=== PATIENT | male | born 1990 | race Caucasian/White ===

== ENCOUNTER 2018-04-05 23:20 | Emergency (ER) | payer BC, MEDICAID ==
--- NOTE | 2018-04-05 23:58 | ED ---
Substance Abuse/Use - HPI Summary HPI Summary: This is judith Whatley documenting for attending Dr. Pari Hays This patient is a 27 year old M presenting to [facility] with a chief complaint of heroin overdose since 2199. Pt and friend were driving in a car and he became unresponsive. Pt was given 4 mg Narcan with good effect. Pt notes he does not know who called EMS. Pt does not know where he was when he was picked up. Pt was unconscious upon arrival. He denies IV heroin use, admits he nasally ingested the substance. Pt states he never does (heroin) and that its his first time. Pt lives in [place], pt denies Rx, PMHx. I, Dr. Yañez personally performed the services described in this documentation as scribed in my presence and it is both accurate and complete - History Of Current Complaint Chief Complaint: EDSubstanceAbuse Stated Complaint: OVERDOSE Time Seen by Provider: 04/05/18 23:28 Hx Obtained From: Patient, EMS Onset/Duration of Drug/ETOH Abuse: Hours Ingestion History: Type/Name Of Drug - heroin, nasal Overdose Characteristics: Other - insufflation Timing Of Abuse: Intermittent Severity Initially: Severe Severity Currently: Mild Character: Lethargic Aggravating Factor(s): Nothing Alleviating Factor(s): Nothing Associated Signs And Symptoms: Confused, Intentional Ingestion Related Hx: Drug/Alcohol Last Used @ - 2199 - Allergies/Home Medications Allergies/Adverse Reactions: Allergies Allergy/AdvReac Type Severity Reaction Status Date / Time No Known Allergies Allergy Verified 04/05/18 23:29 Home Medications: Home Medications NK [No Home Medications Reported] 04/05/18 [History Confirmed 04/05/18] PMH/Surg Hx/FS Hx/Imm Hx Endocrine/Hematology History: Denies: Hx Diabetes, Hx Sickle Cell Disease Cardiovascular History: Denies: Hx Myocardial Infarction Respiratory History: Denies: Hx Lung Cancer History: Denies: Hx Chronic Renal Failure, Hx Dialysis Musculoskeletal History: Denies: Hx Osteoporosis Sensory History: Denies: Hx Legally Blind, Hx Deafness Opthamlomology History: Denies: Hx Legally Blind EENT History: Denies: Hx Deafness Neurological History: Denies: Hx CVA Psychiatric History: Reports: Hx Substance Abuse - heroin Denies: Hx Autism, Hx Schizophrenia Infectious Disease History: Yes Infectious Disease History: Denies: Traveled Outside the [place] in Last 30 Days - Family History Known Family History: Negative: Blood Disorder - Social History Alcohol Use: Weekly Hx Substance Use: Yes Substance Use Type: Reports: Heroin Hx Tobacco Use: Yes Smoking Status (MU): Current Every Day Smoker Review of Systems Positive: Other - lethargy Positive: Syncope All Other Systems Reviewed And Are Negative: Yes Physical Exam - Summary Physical Exam Summary: VITAL SIGNS: Reviewed. GENERAL: Patient is a well-developed and nourished male who is lying comfortable in the stretcher. Patient is not in any acute respiratory distress. HEAD AND FACE: No signs of trauma. No ecchymosis, hematomas or skull depressions. No sinus tenderness. EYES: PERRLA, EOMI x 2, No injected conjunctiva, no nystagmus. EARS: Hearing grossly intact. Ear canals and tympanic membranes are within normal limits. MOUTH: Oropharynx within normal limits. NECK: Supple, trachea is midline, no adenopathy, no JVD, no carotid bruit, no c- spine tenderness, neck with full ROM. CHEST: Symmetric, no tenderness at palpation LUNGS: Clear to auscultation bilaterally. No wheezing or crackles. CVS: Regular rate and rhythm, S1 and S2 present, no murmurs or gallops appreciated. ABDOMEN: Soft, non-tender. No signs of distention. No rebound no guarding, and no masses palpated. Bowel sounds are normal. EXTREMITIES: FROM in all major joints, no edema, no cyanosis or clubbing. NEURO: Alert and oriented x 3. No acute neurological deficits. Speech is normal and follows commands. SKIN: Dry and warm Triage Information Reviewed: Yes Vital Signs On Initial Exam: Initial Vitals Pulse BP Pulse Ox 117 129/72 96 04/05/18 23:22 04/05/18 23:22 04/05/18 23:22 Vital Signs Reviewed: Yes Diagnostics - Vital Signs Vital Signs Temp Pulse Resp BP Pulse Ox 04/05/18 23:28 118 97 04/05/18 23:26 98.6 F 111 22 136/78 94 04/05/18 23:22 117 129/72 96 - Laboratory Lab Statement: Any lab studies that have been ordered have been reviewed, and results considered in the medical decision making process. Course/Dx - Course Course Of Treatment: 27 year old male with no PMHx sniffed heroin with friend, pt became unresponsive. It appears his friend called 911. Pt given 4 mg narcan with good effect. Pt admitted to sniffing heroin, but 1st time using it. Pt has been in ED under observation for an hour and is hemodymaically stable, will be discharged. - Diagnoses Provider Diagnoses: Heroin abuse Discharge - Sign-Out/Discharge Documenting (check all that apply): Patient Departure - Discharge Plan Condition: Stable Disposition: HOME Patient Education Materials: Narcotic Abuse (ED) Referrals: Abdirizak Webb MD [Primary Care Provider] - 2 Days Additional Instructions: Return to the emergency department for any changing or worsening symptoms. Follow up with your primary care provider in 1-2 days. - Billing Disposition and Condition Condition: STABLE Disposition: Home Attestation Statement User Type: Provider - IDr. Yañez personally performed the services described in this documentation as scribed in my presence and it is both accurate and complete.
[2018-04-06 01:10] VITALS: BP 124/72
== END 2018-04-06 01:11 | disposition home or self-care (01) ==
LOC: ED 23:20
DX: T40.1X1A Poisoning by heroin, accidental (unintentional), initial encounter (principal); Y92.9 Unspecified place or not applicable; F17.210 Nicotine dependence, cigarettes, uncomplicated; R55 Syncope and collapse; R53.83 Other fatigue
CPT/HCPCS: 99282